=== PATIENT | male | born 1935 | race Caucasian/White ===

== ENCOUNTER 2017-01-01 23:35 | Emergency (ER) | payer MEDICARE, OTHER ==
[~2017-01-01] VITALS: Ht 177.8 cm; Wt 62.0 kg
[~2017-01-01 23:35] MED LIST: ALPR0.5T99 PO; AMLO10 PO; ANTI12.5 PO; ASPI81 PO; CLOP75 PO; OXYC-360 PO; RANI150 PO; TAPA10TA2 PO
[2017-01-01 23:37] VITALS: BP 98/62; PULSE 90; RESP 18; TEMP 98.2; O2SAT 99
[2017-01-01] MEDS ORDERED: SODIUM CHLOR 0.9% 1000 ML INJ 1,000 ML IV ONE (23:47)
[2017-01-01 23:52] VITALS: O2SAT 95
[2017-01-02] MEDS ORDERED: SODIUM CHLORIDE 0.9% FLUSH 10 ML FLUSH IVF PRN
--- NOTE | 2017-01-02 00:36 | RADRPT ---
EXAM DATE/TIME: 01/01/2017 23:51 [facility] COMPARISON: No previous studies available for comparison. INDICATIONS : Possible fall. MEDICAL HISTORY : A-Fib SURGICAL HISTORY : None. ENCOUNTER: Initial ACUITY: 1 day PAIN SCORE: 0/10 LOCATION: Bilateral chest FINDINGS: No infiltrate seen. Suspected very small pleural effusion at the left lung base. No pneumothorax. Surgical clips project over the left side of the mediastinum. Heart size normal. No gross evidence of fracture the visualized osseous structures. They should has had left shoulder ar throplasty. CONCLUSION: Tiny left pleural effusion suspected. Other findings appear chronic. Jamarcus Quintanilla MD on January 02, 2017 at 0:34 Board Certified Radiologist. This report was verified electronically.
--- NOTE | 2017-01-02 00:38 | RADRPT ---
EXAM DATE/TIME: 01/01/2017 23:55 [facility] COMPARISON: No previous studies available for comparison. INDICATIONS : Laceration. MEDICAL HISTORY : None. SURGICAL HISTORY : None. ENCOUNTER: Initial ACUITY: 1 day PAIN SCORE: 09/15 LOCATION: Left Elbow FINDINGS: Bones of the left elbow are intact. Mild osteoarthritis is noted. There is no evidence of an effusion . Mild cortical irregularity and small, non-acute ossific fragments are seen of the medial epicondyle. CONCLUSION: 1. No fracture or subluxation of the left elbow. No perceptible joint effusion. 2. Sequela of previous or chronic medial epicondylitis suspected. 3. Mild left elbow osteoarthritis. Jamarcus Quintanilla MD on January 02, 2017 at 0:35 Board Certified Radiologist. This report was verified electronically.
[2017-01-02 00:44] LABS: AUTOMATED NEUTROPHIL # 8.4 TH/MM3 (1.8-7.7); BASOPHIL % 0.3 % (0.0-2.0); EOSINOPHIL # 0.1 TH/MM3 (0-0.4); EOSINOPHIL % 1.2 % (0.0-4.0); HEMATOCRIT 40.5 % (39.0-51.0); HEMO FLAGS DIFF FINAL; LYMPH % 12.2 % (9.0-44.0); LYMPHOCYTE # 1.3 TH/MM3 (1.0-4.8); MEAN CELL VOLUME 80.8 FL (80.0-100.0); MEAN CORPUSCULAR HEMOGLOBIN 27.7 PG (27.0-34.0); MEAN CORPUSCULAR HGB CONC 34.2 % (32.0-36.0); MONO % 7.4 % (0.0-8.0); NEUT % 78.9 % (16.0-70.0); PLATELET COUNT 178 TH/MM3 (150-450); RED BLOOD COUNT 5.01 MIL/MM3 (4.50-5.90); RED CELL DISTRIBUTION WIDTH 13.6 % (11.6-17.2); WHITE BLOOD COUNT 10.7 TH/MM3 (4.0-11.0)
[2017-01-02 00:49] LABS: APTT (PATIENT) 32.5 SEC (24.3-30.1); INTERNATIONAL NORMALIZED RATIO 1.5 RATIO; PROTHROMBIN TIME - PATIENT 16.3 SEC (9.8-11.6)
[2017-01-02 00:55] LABS: ANION GAP 5 MEQ/L (5-15); AST (GOT) 12 U/L (15-37); BICARBONATE 34.1 MEQ/L (21.0-32.0); BLOOD UREA NITROGEN 28 MG/DL (7-18); CHLORIDE 99 MEQ/L (98-107); GLOMERULAR FILTRATION RATE 59 ML/MIN (>89); MAGNESIUM 1.9 MG/DL (1.5-2.5); POTASSIUM 3.5 MEQ/L (3.5-5.1); SODIUM (NA) 138 MEQ/L (136-145)
[2017-01-02 01:00] LABS: ALKALINE PHOSPHATASE 71 U/L (45-117); ALT (GPT) 20 U/L (12-78)
--- NOTE | 2017-01-02 01:02 | RADRPT ---
EXAM DATE/TIME: 01/02/2017 00:32 [facility] COMPARISON: No previous studies available for comparison. INDICATIONS : Trauma; fall. Patient is confused and complains of headache. RADIATION DOSE: 41.55 CTDIvol (mGy) MEDICAL HISTORY : Non-responsive. SURGICAL HISTORY : Non-responsive. ENCOUNTER: Initial ACUITY: 1 day PAIN SCALE: Non-responsive LOCATION: cranial TECHNIQUE: Multiple contiguous axial images were obtained of the head. Using automated exposure control and adj ustment of the mA and/or kV according to patient size, radiation dose was kept as low as reasonably a chievable to obtain optimal diagnostic quality images. FINDINGS: CEREBRUM: The ventricles are normal for age. No evidence of midline shift, mass lesion, hemorrhage or acute in farction. No extra-axial fluid collections are seen. POSTERIOR FOSSA: The cerebellum and brainstem are intact. The 4th ventricle is midline. The cerebellopontine angle i s unremarkable. EXTRACRANIAL: The visualized portion of the orbits is intact. SKULL: The calvaria is intact. No evidence of skull fracture. CONCLUSION: No bleed or other acute intracranial abnormality. Jamarcus Quintanilla MD on January 02, 2017 at 1:00 Board Certified Radiologist. This report was verified electronically.
[2017-01-02 01:03] LABS: CREATINE KINASE 41 U/L (39-308)
[2017-01-02 01:09] LABS: BLOOD, URINE MOD (NEG); GLUCOSE,URINE NEG (NEG); HYALINE CAST, URINE 10 /lpf (RARE); KETONE, URINE NEG (NEG); MUCUS URINE FEW /lpf (OCC); NITRITE,URINE NEG (NEG); PH, URINE 5.5 (5.0-8.5); SQUAMOUS EPITHELIAL CELL URINE <1 /hpf (0-5); URINE COLOR YELLOW (YELLW/STRAW)
[2017-01-02 01:13] LABS: COMMENT (UR) CULT NOT INDICATED; CULTURE IF INDICATED CULT NOT INDICATED
--- NOTE | 2017-01-02 01:34 | PD ---
HPI Chief Complaint: Fall Time Seen by Provider: 23:42 Travel History International Travel<30 days: No Contact w/Intl Traveler<30days: No Traveled to known affect area: No History of Present Illness HPI 81-year-old male states he was sleeping in bed when somehow he fell out. He states he hit his head. He is not sure if he blacked out or not. He denies any other concurrent complaints. He states he just falls sometimes. Quality is possible loss of consciousness. Severity is off bed. He is on Xarelto with atrial fibrillation. PFSH Past Medical History Hx Anticoagulant Therapy: Yes (XALRELTO ) Arthritis: Yes Asthma: No Autoimmune Disease: No Blood Disorders: No Anxiety: Yes Depression: Yes Cancer: Yes (skin cancer nose) Cardiovascular Problems: Yes High Cholesterol: Yes (very little) Chemotherapy: No COPD: No Cerebrovascular Accident: Yes (mini stroke) Diabetes: No Endocrine: No Gastrointestinal Disorders: Yes Genitourinary: No Hypertension: Yes Immune Disorder: No Implanted Vascular Access Dvce: Yes Musculoskeletal: No Neurologic: Yes Psychiatric: No Reproductive: No Respiratory: No Radiation Therapy: No Thyroid Disease: Yes Ulcer: Yes Influenza Vaccination: Yes Past Surgical History Abdominal Surgery: Yes (bilat inguinal hernia repair,cholecystectomy) Cholecystectomy: Yes Joint Replacement: Yes (right hip) Pacemaker: No Thoracic Surgery: Yes (left thoracotomy and left lower lobectomy) Other Surgery: Yes Social History Alcohol Use: No Tobacco Use: No Substance Use: No Allergies-Medications (Allergen,Severity, Reaction): Coded Allergies: Sulfa (Verified Allergy, Severe, swelling to legs and feet, 01/01/17) Uncoded Allergies: NKA (Allergy, Unknown, 05/15/03) SULFA-SWELLING TO LEGS AND FEET (Allergy, Unknown, 05/15/03) Reported Meds & Prescriptions Reported Meds & Active Scripts Active Reported Percocet (Oxycodone/Acetaminophen) 5 Mg/325 Mg Tab 1-2 Tab PO Q4HPRN FOR PAIN Xanax (Alprazolam) 0.5 Mg Tab 0.5 Mg PO TIDPRN Antivert (Meclizine HCl) 12.5 Mg Tab 12.5 Mg PO DIRECTED PRN Aspirin 81 Mg Tab 81 Mg PO DAILY Tapazole (Methimazole) 10 Mg Tab 10 Mg PO DAILY Zantac (Ranitidine HCl) 150 Mg Tab 150 Mg PO BID Norvasc (Amlodipine Besylate) 10 Mg Tab 10 Mg PO DAILY Plavix (Clopidogrel Bisulfate) 75 Mg Tab 75 Mg PO DAILY Review of Systems Except as stated in HPI: all other systems reviewed are Neg Physical Exam Narrative General: 81 y/o patient in no apparent distress Skin: trauma noted to back of head with abrasion, Steri-Strips noted over left elbow without active bleeding Eyes: Pupils equal NECK: no pain with palpation and range of motion in midline Cardiovascular: Regular rate and rhythm Respiratory: Normal respiratory effort noted, clear to auscultation bilaterally Abdomen: soft, nontender, nondistended Back: No step-offs, midline spine nontender with palpation Extremities: Pain with palpation of left elbow,neurovascularly intact, no pain with rom of other joints Neuro: awake, moves all extremities, clear speech Data Data Last Documented VS Vital Signs Date Time Temp Pulse Resp B/P Pulse Ox O2 Delivery O2 Flow Rate FiO2 01/01/17 23:52 95 Room Air 01/01/17 23:37 98.2 90 18 98/62 Orders Electrocardiogram (01/01/17 23:47) Complete Blood Count With Diff (01/01/17 23:47) Comprehensive Metabolic Panel (01/01/17 23:47) Magnesium (Mg) (01/01/17 23:47) Ckmb (Isoenzyme) Profile (01/01/17 23:47) Troponin I (01/01/17 23:47) Act Partial Throm Time (Ptt) (01/01/17 23:47) Prothrombin Time / Inr (Pt) (01/01/17 23:47) Urinalysis - C+S If Indicated (01/01/17 23:47) Chest, Single Ap (01/01/17 23:47) Ct Brain W/O Iv Contrast(Rout) (01/01/17 23:47) Ecg Monitoring (01/01/17 23:47) Iv Access Insert/Monitor (01/01/17 23:47) Oximetry (01/01/17 23:47) Sodium Chloride 0.9% Flush (Ns Flush) (01/02/17 00:00) Sodium Chlor 0.9% 1000 Ml Inj (Ns 1000 M (01/01/17 23:47) Elbow, Complete (4 Vws) (01/01/17 23:47) Labs Laboratory Tests Test 01/02/17 01/02/17 00:00 00:17 Urine Color YELLOW Urine Turbidity CLEAR Urine pH 5.5 Urine Specific [place] 1.025 Urine Protein TRACE mg/dL Urine Glucose (UA) NEG mg/dL Urine Ketones NEG mg/dL Urine Occult Blood MOD Urine Nitrite NEG Urine Bilirubin NEG Urine Urobilinogen LESS THAN 2.0 MG/DL Urine Leukocyte Esterase NEG Urine RBC 75 /hpf Urine WBC 3 /hpf Urine Squamous Epithelial <1 /hpf Cells Urine Hyaline Casts 10 /lpf Urine Mucus FEW /lpf Microscopic Urinalysis Comment CULT NOT INDICATED White Blood Count 10.7 TH/MM3 Red Blood Count 5.01 MIL/MM3 Hemoglobin 13.9 GM/DL Hematocrit 40.5 % Mean Corpuscular Volume 80.8 FL Mean Corpuscular Hemoglobin 27.7 PG Mean Corpuscular Hemoglobin 34.2 % Concent Red Cell Distribution Width 13.6 % Platelet Count 178 TH/MM3 Mean Platelet Volume 8.6 FL Neutrophils (%) (Auto) 78.9 % Lymphocytes (%) (Auto) 12.2 % Monocytes (%) (Auto) 7.4 % Eosinophils (%) (Auto) 1.2 % Basophils (%) (Auto) 0.3 % Neutrophils # (Auto) 8.4 TH/MM3 Lymphocytes # (Auto) 1.3 TH/MM3 Monocytes # (Auto) 0.8 TH/MM3 Eosinophils # (Auto) 0.1 TH/MM3 Basophils # (Auto) 0.0 TH/MM3 CBC Comment DIFF FINAL Differential Comment Prothrombin Time 16.3 SEC Prothromb Time International 1.5 RATIO Ratio Activated Partial 32.5 SEC Thromboplast Time Sodium Level 138 MEQ/L Potassium Level 3.5 MEQ/L Chloride Level 99 MEQ/L Carbon Dioxide Level 34.1 MEQ/L Anion Gap 5 MEQ/L Blood Urea Nitrogen 28 MG/DL Creatinine 1.18 MG/DL Estimat Glomerular Filtration 59 ML/MIN Rate Random Glucose 121 MG/DL Calcium Level 8.4 MG/DL Magnesium Level 1.9 MG/DL Total Bilirubin 1.0 MG/DL Aspartate Amino Transf 12 U/L (AST/SGOT) Alanine Aminotransferase 20 U/L (ALT/SGPT) Alkaline Phosphatase 71 U/L Total Creatine Kinase 41 U/L Troponin I 0.02 NG/ML Total Protein 6.4 GM/DL Albumin 3.1 GM/DL MDM Medical Decision Making Medical Screen Exam Complete: Yes Emergency Medical Condition: Yes Medical Record Reviewed: Yes (past history confirmed) Interpretation(s) CBC & BMP Diagram 01/02/17 00:17 Last [address] 01/01/172346 Signed Impressions: Service Date/Time: Monday, January 02, 2017 00:32 - CONCLUSION: No bleed or other acute intracranial abnormality. Jamarcus Quintanilla MD Elbow X-Ray 01/01/172346 Signed Impressions: Service Date/Time: Sunday, January 01, 2017 23:55 - CONCLUSION: 1. No fracture or subluxation of the left elbow. No perceptible joint effusion. 2. Sequela of previous or chronic medial epicondylitis suspected. 3. Mild left elbow osteoarthritis. Jamarcus Quintanilla MD Chest X-Ray 01/01/172346 Signed Impressions: Service Date/Time: Sunday, January 01, 2017 23:51 - CONCLUSION: Tiny left pleural effusion suspected. Other findings appear chronic. Jamarcus Quintanilla MD Differential Diagnosis Fracture, bleed, strain, anemia, renal failure, UTI Narrative Course Will check blood work, trauma imaging and reevaluate ED workup no acute, patient wanting to go back.Patient denies any new complaints and states that they are feeling better. Patient happy with care, all questions answered. Patient knows that follow up is incumbent on them and to return to the emergency room immediately if new or worsening symptoms develop. Patient given strict return precautions, vitals reviewed and are normal , agrees to further workup as an outpatient. Diagnosis Primary Impression: Fall Qualified Code: W19.XXXA - Fall, initial encounter Patient Instructions: General Instructions Additional Instructions: follow with primary wednesday, return as needed, tylenol as needed, keep blood pressure log and if low no blood pressure medication Med/Other Pt SpecificInfo: No Change to Meds Disposition: 03 DISCHARGE TO SNF Condition: Stable Rajni Gould MD Jan 02, 2017 01:34
[2017-01-02 04:35] VITALS: BP 139/79; PULSE 98; RESP 16; O2SAT 99
[2017-01-02] MEDS ORDERED: COLA100C3 PO (05:31)
[2017-01-02] MEDS ORDERED: CITRSOL4 PO (05:31)
[2017-01-02] MEDS ORDERED: ACET325T PO (05:31)
[2017-01-02] MEDS ORDERED: CARD180C5 PO (05:31)
[2017-01-02] MEDS ORDERED: ASPI81CH CHEW (05:31)
[2017-01-02] MEDS ORDERED: ALBU0.08 NEB (05:31)
[2017-01-02] MEDS ORDERED: APLI5INJ2 (05:31)
[2017-01-02] MEDS ORDERED: FURO1TAB62 PO (05:34)
[2017-01-02] MEDS ORDERED: DULC10SU3 RECTAL (05:34)
[2017-01-02] MEDS ORDERED: TAMS0.4C4 PO (05:34)
[2017-01-02] MEDS ORDERED: MILKSUS PO (05:34)
[2017-01-02] MEDS ORDERED: ENEMENE5 (05:34)
[2017-01-02] MEDS ORDERED: VENTAER INH (05:34)
[2017-01-02] MEDS ORDERED: XARE20TA PO (05:34)
[2017-01-02] MEDS ORDERED: FAMO20TA2 PO (05:34)
[2017-01-02] MEDS ORDERED: NITR1SUB3 SL (05:34)
--- NOTE | 2017-01-02 19:09 | EKG ---
Date Performed: 01/02/2017 Time Performed: 00:14:58 PTAGE: 81 years EKG: ATRIAL FIBRILLATION WITH ABERRANT CONDUCTION OR VENTRICULAR PREMATURE COMPLEXES SEPTAL MYOC ARDIAL INFARCTION MODERATE ST-T ABNORMALITY PREVIOUS TRACING : 11/05/2003 13.46 Compared to the previous tracing SR no longer present , ST-T changes more prominent DOCTOR: Lacy Linder Interpretating Date/Time 01/02/2017 19:07:34
== END 2017-01-02 10:24 ==
LOC: NEPE 23:35 → NEPD 01-02 10:24
DX: S09.90XA Unspecified injury of head, initial encounter (principal); S00.91XA Abrasion of unspecified part of head, initial encounter; S50.312A Abrasion of left elbow, initial encounter; I10 Essential (primary) hypertension; I48.91 Unspecified atrial fibrillation; F41.8 Other specified anxiety disorders; Z79.01 Long term (current) use of anticoagulants; Z86.73 Personal history of transient ischemic attack (TIA), and cerebral infarction without residual deficits; W06.XXXA Fall from bed, initial encounter; Z91.81 History of falling; Y93.9 Activity, unspecified; Y92.9 Unspecified place or not applicable; Y99.9 Unspecified external cause status
CPT/HCPCS: 70450; 71010; 73080; 80053; 81001; 82550; 83735; 84484; 85025; 85610; 85730; 93005; 96360; 99285; J7030

== ENCOUNTER 2017-02-24 13:47 | Emergency (ER) | payer OTHER ==
[~2017-02-24] VITALS: Ht 177.8 cm; Wt 62.0 kg
[~2017-02-24 13:47] MED LIST changes: +ACET325T PO; +ALBU0.08 NEB; -ALPR0.5T99 PO; -AMLO10 PO; -ANTI12.5 PO; +APLI5INJ2; -ASPI81 PO; +ASPI81CH CHEW; +CARD180C5 PO; +CITRSOL4 PO; -CLOP75 PO; +COLA100C3 PO; +DULC10SU3 RECTAL; +ENEMENE5; +FAMO20TA2 PO; +FURO1TAB62 PO; +MILKSUS PO; +NITR1SUB3 SL; -OXYC-360 PO; -RANI150 PO; +TAMS0.4C4 PO; -TAPA10TA2 PO; +VENTAER INH; +XARE20TA PO
[2017-02-24 14:54] VITALS: BP 125/63; PULSE 90; RESP 16; TEMP 97.9; O2SAT 97
[2017-02-24 17:20] VITALS: BP 133/83; PULSE 82; RESP 18; O2SAT 100
--- NOTE | 2017-02-24 17:20 | PD ---
HPI Chief Complaint: Fall Time Seen by Provider: 17:16 Travel History International Travel<30 days: No Contact w/Intl Traveler<30days: No Traveled to known affect area: No History of Present Illness HPI 81-year-old male came to the emergency room sent from the custodial after he had a fall while he climbed up on a stool to help his lady friend. Patient is not sure why he fell but he did not hit his head or lose consciousness. He says this happens at around 10:00 this morning. He has been laying the entire time but otherwise feels okay. Vital signs were stable. Patient remembers the entire event. He is answering all my questions appropriately. He says he didn' t eat or drink anything since then and would like to drink some carbonated beverage. PFSH Past Medical History Narrative Medical List of his past medical, surgical, social and family history was reviewed from the nursing note. Hx Anticoagulant Therapy: Yes (XALRELTO ) Arthritis: Yes Asthma: No Autoimmune Disease: No Blood Disorders: No Anxiety: Yes Depression: Yes Cancer: Yes (skin cancer nose) Cardiovascular Problems: Yes (HTN, A-FIB) High Cholesterol: Yes (very little) Chemotherapy: No COPD: Yes Cerebrovascular Accident: Yes (mini stroke) Diabetes: No Endocrine: No Gastrointestinal Disorders: Yes Genitourinary: No Hypertension: Yes Immune Disorder: No Implanted Vascular Access Dvce: Yes Musculoskeletal: No Neurologic: Yes Psychiatric: No Reproductive: No Respiratory: No Radiation Therapy: No Thyroid Disease: Yes Ulcer: Yes Past Surgical History Abdominal Surgery: Yes (bilat inguinal hernia repair,cholecystectomy) Cholecystectomy: Yes Joint Replacement: Yes (right hip) Pacemaker: No Thoracic Surgery: Yes (left thoracotomy and left lower lobectomy) Other Surgery: Yes Social History Alcohol Use: No Tobacco Use: No Substance Use: No Allergies-Medications (Allergen,Severity, Reaction): Coded Allergies: Sulfa (Verified Allergy, Severe, swelling to legs and feet, 02/24/17) Uncoded Allergies: NKA (Allergy, Unknown, 05/15/03) SULFA-SWELLING TO LEGS AND FEET (Allergy, Unknown, 05/15/03) Comments List of his allergies reviewed from the nursing note. Reported Meds & Prescriptions Reported Meds & Active Scripts Active Reported Ventolin Hfa 18 GM Inh (Albuterol Sulfate) 90 Mcg/Act Aer 2 Puff INH Q4-6H PRN Tamsulosin (Tamsulosin HCl) 0.4 Mg Cap 0.4 Mg PO HS Xarelto (Rivaroxaban) 20 Mg Tab 20 Mg PO DAILY Nitroglycerin SL (Nitroglycerin) 0.4 Mg Subl 0.4 Mg SL DIRECTED PRN ONE TABLET UNDER THE TONGUE NEEDED FOR CHEST PAIN, MAY REPEAT EVERY FIVE MINUTES FOR A TOTAL OF 3 DOSES OR CALL 911 IF NO RELIEF Milk of Magnesia Liq (Magnesium Hydroxide) 400 Mg/5 Ml Susp 30 Ml PO DAILY PRN Lasix (Furosemide) 20 Mg Tab 20 Mg PO DAILY Famotidine 20 Mg Tab 20 Mg PO BID Enema Disposable (Sodium Phosphates) 1 Bettye Bettye Dulcolax Supp (Bisacodyl) 10 Mg Supp 10 Mg RECTAL DAILY PRN Colace (Docusate Sodium) 100 Mg Cap 100 Mg PO BID Citroma Liq (Magnesium Citrate) 300 Ml Liq 296 Ml PO DIRECTED Cardizem CD 24 HR (Diltiazem CD 24 HR) 180 Mg Caper 180 Mg PO DAILY Aspirin 81 Mg Chew 81 Mg CHEW DAILY Aplisol (Tuberculin Ppd) 5 Unit/0.1 Ml Inj Albuterol Neb (Albuterol Sulfate) 2.5 Mg/3 Ml Neb 2.5 Mg NEB BID PRN Acetaminophen 325 Mg Tab 325 Mg PO Q4-6H PRN Narrative Medication List of his home medications reviewed from the nursing note. Review of Systems Except as stated in HPI: all other systems reviewed are Neg Physical Exam Narrative GENERAL: Awake, alert, elderly, no obvious distress SKIN: Focused skin assessment warm/dry. HEAD: Atraumatic. Normocephalic. EYES: Pupils equal and round. No scleral icterus. No injection or drainage. ENT: No nasal bleeding or discharge. Mucous membranes pink and moist. NECK: Trachea midline. No JVD. CARDIOVASCULAR: Regular rate and rhythm. No murmur appreciated. RESPIRATORY: No accessory muscle use. Clear to auscultation. Breath sounds equal bilaterally. GASTROINTESTINAL: Abdomen soft, non-tender, nondistended. Hepatic and splenic margins not palpable. MUSCULOSKELETAL: No obvious deformities. No clubbing. No cyanosis. No edema. NEUROLOGICAL: Awake and alert. No obvious cranial nerve deficits. Motor grossly within normal limits. Normal speech. Gait was slightly unsteady initially when he got out of the stretcher but then he did fine without any assistance. PSYCHIATRIC: Appropriate mood and affect; insight and judgment normal. Data Data Last Documented VS [facility] Medical Decision Making Medical Screen Exam Complete: Yes Emergency Medical Condition: Yes Medical Record Reviewed: Yes Differential Diagnosis Fall Narrative Course 5:43 PM I'm comfortable discharging the patient home. I gave him some catarina noman to drink. In spite of the fact that he is on Xarelto he did not hit his head when he fell. I do not feel necessary to do any tests at this point. Patient will be discharged. Procedures EKG Prior to Arrival: No Diagnosis Primary Impression: Fall Qualified Code: W19.XXXA - Fall, initial encounter Referrals: Primary Care Physician Additional Instructions: Please return to the ER if the condition worsens or any other new concerns. Otherwise follow-up with your primary care. The careful climbing up the ladder , chair or stool especially for the risk of losing balance and falling. Med/Other Pt SpecificInfo: No Change to Meds Disposition: DISCHARGE HOME Condition: Benitez Farah MD Feb 24, 2017 17:20 Additional Instructions: Please return to the ER if the condition worsens or any other new concerns. Otherwise follow-up with your primary care. The careful climbing up the ladder , chair or stool especially for the risk of losing balance and falling. Med/Other Pt SpecificInfo: No Change to Meds Disposition: DISCHARGE HOME Condition: Benitez Farah MD Feb 24, 2017 17:20
== END 2017-02-24 18:56 | disposition home or self-care (01) ==
LOC: NEPD 13:47
DX: Z04.3 Encounter for examination and observation following other accident (principal); M19.90 Unspecified osteoarthritis, unspecified site; F41.9 Anxiety disorder, unspecified; F32.9 Major depressive disorder, single episode, unspecified; I10 Essential (primary) hypertension; I48.91 Unspecified atrial fibrillation; E78.00 Pure hypercholesterolemia, unspecified; J44.9 Chronic obstructive pulmonary disease, unspecified; Z86.73 Personal history of transient ischemic attack (TIA), and cerebral infarction without residual deficits
CPT/HCPCS: 99283

== ENCOUNTER 2017-05-02 03:23 | Emergency (ER) | payer OTHER, MEDICAID ==
[2017-05-02] MEDS ORDERED: CALCIUM CHLORIDE 10% SOLN 1 GRAM/10 ML SYR IV ONE (03:24)
[2017-05-02] MEDS ORDERED: SODIUM BICARBONATE 7.5% INJ 44.6 MEQ/50 ML SYR IV PUSH ONE (03:24)
[2017-05-02] MEDS ORDERED: EPINEPHrine HCL (1:10,000) 1 MG/10 ML SYRINGE IV ONE (03:24)
[2017-05-02 03:30] VITALS: O2SAT 79
--- NOTE | 2017-05-02 03:51 | PD ---
HPI Chief Complaint: cardiac arrest Time Seen by Provider: 03:36 Travel History International Travel<30 days: No Contact w/Intl Traveler<30days: No History of Present Illness HPI 81-year-old male with history of COPD, previous stroke, multiple medical issues , [facility], presents to the ER today brought in by EMS as a cardiac coded, apparently [facility] had initially called EMS for respiratory distress, patient became unresponsive and CPR had been initiated on scene after patient had gone down for about 5-10 minutes. Initial rhythm was PEA according to EMS, and they had worked on him with multiple rounds of CPR, obtained spontaneous return of circulation as they got to the hospital, but then patient went back into pulseless arrest when they got to the room. Initial evaluation of the patient in the room shows asystole. At this point, patient had been down for at least half an hour. Patient had been intubated by EMS. Modifying Factors: None Associated Signs & Symptoms: Cardiac arrest Risk Factors: Elderly [facility]dc patient PFSH Past Medical History Hx Anticoagulant Therapy: Yes (XALRELTO ) Arthritis: Yes Asthma: No Autoimmune Disease: No Blood Disorders: No Anxiety: Yes Depression: Yes Cancer: Yes (skin cancer nose) Cardiovascular Problems: Yes (HTN, A-FIB) High Cholesterol: Yes (very little) Chemotherapy: No COPD: Yes Cerebrovascular Accident: Yes (mini stroke) Diabetes: No Endocrine: No Gastrointestinal Disorders: Yes Genitourinary: No Hypertension: Yes Immune Disorder: No Implanted Vascular Access Dvce: Yes Musculoskeletal: No Neurologic: Yes Psychiatric: No Reproductive: No Respiratory: No Radiation Therapy: No Thyroid Disease: Yes Ulcer: Yes Past Surgical History Abdominal Surgery: Yes (bilat inguinal hernia repair,cholecystectomy) Cholecystectomy: Yes Joint Replacement: Yes (right hip) Pacemaker: No Thoracic Surgery: Yes (left thoracotomy and left lower lobectomy) Other Surgery: Yes Social History Alcohol Use: No Tobacco Use: No Substance Use: No Allergies-Medications (Allergen,Severity, Reaction): Coded Allergies: Sulfa (Sulfonamide Antibiotics) (Unverified Allergy, Severe, swelling to legs and feet, 04/20/17) Uncoded Allergies: NKA (Allergy, Unknown, 05/15/03) SULFA-SWELLING TO LEGS AND FEET (Allergy, Unknown, 05/15/03) Reported Meds & Prescriptions Reported Meds & Active Scripts Active Reported Ventolin Hfa 18 GM Inh (Albuterol Sulfate) 90 Mcg/Act Aer 2 Puff INH Q4-6H PRN Tamsulosin (Tamsulosin HCl) 0.4 Mg Cap 0.4 Mg PO HS Xarelto (Rivaroxaban) 20 Mg Tab 20 Mg PO DAILY Nitroglycerin SL (Nitroglycerin) 0.4 Mg Subl 0.4 Mg SL DIRECTED PRN ONE TABLET UNDER THE TONGUE NEEDED FOR CHEST PAIN, MAY REPEAT EVERY FIVE MINUTES FOR A TOTAL OF 3 DOSES OR CALL 911 IF NO RELIEF Milk of Magnesia Liq (Magnesium Hydroxide) 400 Mg/5 Ml Susp 30 Ml PO DAILY PRN Lasix (Furosemide) 20 Mg Tab 20 Mg PO DAILY Famotidine 20 Mg Tab 20 Mg PO BID Enema Disposable (Sodium Phosphates) 1 Bettye Bettye Dulcolax Supp (Bisacodyl) 10 Mg Supp 10 Mg RECTAL DAILY PRN Colace (Docusate Sodium) 100 Mg Cap 100 Mg PO BID Citroma Liq (Magnesium Citrate) 300 Ml Liq 296 Ml PO DIRECTED Cardizem CD 24 HR (Diltiazem CD 24 HR) 180 Mg Caper 180 Mg PO DAILY Aspirin 81 Mg Chew 81 Mg CHEW DAILY Aplisol (Tuberculin Ppd) 5 Unit/0.1 Ml Inj Albuterol Neb (Albuterol Sulfate) 2.5 Mg/3 Ml Neb 2.5 Mg NEB BID PRN Acetaminophen 325 Mg Tab 325 Mg PO Q4-6H PRN Review of Systems ROS Limitations: Intubated Physical Exam Narrative GENERAL: Well-developed elderly white male patient who is intubated, CPR in progress. SKIN: Focused skin assessment warm/dry. HEAD: Atraumatic. Normocephalic. EYES: Pupils dilated, unresponsive to light, equal and round. No scleral icterus. No injection or drainage. Cornea appears cloudy. ENT: No nasal bleeding or discharge. Mucous membranes pale and dry. Tube in place. NECK: Trachea midline. CARDIOVASCULAR: Asystolic. RESPIRATORY: Back valve mask in progress. Clear to auscultation. Breath sounds equal bilaterally. GASTROINTESTINAL: Abdomen soft, nondistended. MUSCULOSKELETAL: No obvious deformities. No clubbing. No edema. NEUROLOGICAL: Unresponsive, intubated MDM Medical Decision Making Medical Screen Exam Complete: Yes Emergency Medical Condition: Yes Medical Record Reviewed: Yes Differential Diagnosis Asystole/cardiac arrest Narrative Course Patient was given bicarbonate and epi as well as several rounds of CPR and calcium. After close to 10 minutes of CPR, transthoracic cardiac ultrasound was done by me which shows cardiac standstill and code was called. I did not see any pericardial effusion. Pupils are fixed and dilated on initial evaluation when EMS brought the patient in and is fixed and dilated on evaluation post code. Procedures Procedure Narrative Transthoracic ultrasound done by me shows cardiac standstill with no pericardial effusion. Diagnosis Primary Impression: Cardiac asystole Disposition: 20 Condition: Bunny Lowery MD May 02, 2017 03:51
== END 2017-05-02 06:05 | disposition expired ==
LOC: NEPC 03:23 → NEPI 06:05
DX: I46.9 Cardiac arrest, cause unspecified (principal); I48.91 Unspecified atrial fibrillation; Z79.01 Long term (current) use of anticoagulants; I10 Essential (primary) hypertension; J44.9 Chronic obstructive pulmonary disease, unspecified; Z79.82 Long term (current) use of aspirin
CPT/HCPCS: 92950; 99283; J0171